=== PATIENT | female | born 1990 | race Caucasian/White ===

== ENCOUNTER 2025-08-18 08:18 | Inpatient (IN) | payer OTHER ==
[2025-08-18] MEDS: ELECTROLYTE-148 SOLN 1,000 ML IV SCH (09:00)
[2025-08-18 09:12] VITALS: BMI 23.3
[2025-08-18] MEDS ORDERED: NIFEdipine E.R. 30 MG TABLET PO ONE (09:18)
[2025-08-18] MEDS ORDERED: OXYTOCIN 30 UNITS in 0.9% NS 30 UNIT/500 ML INFUS.BAG IVPB ONE (09:18)
[2025-08-18 09:19] LABS: ABSOLUTE IMMATURE GRANULOCYTES 0.09 x10^3/uL (0.0-0.031); BASOPHILS # 0.02 x10^3/uL (0.01-0.08); EOSINOPHIL % 0.4 % (0.7-5.8); EOSINOPHILS # 0.04 x10^3/uL (0.04-0.36); MCHC 31.4 g/dl (32.2-35.5); MEAN CELL VOLUME 82.8 fl (79.4-94.8); MEAN PLT VOLUME 10.6 fl (9.4-12.3); MONOCYTE # 0.54 x10^3/uL (0.24-0.86); MONOCYTE % 5.0 % (4.7-12.5); RDW 13.6 % (12.1-16.8)
[2025-08-18] MEDS ORDERED: LIDOCAINE HCL 1% PRESERVATIVE FREE - 30ML VIAL ONE (09:19)
[2025-08-18] MEDS ORDERED: OXYTOCIN 20 UNITS in 0.9% NS 20 UNIT/1,000 ML INFUS.BAG IV ONE (09:19)
[2025-08-18] MEDS: NIFEdipine E.R. 30 MG TABLET PO ONE (09:20)
[2025-08-18] MEDS: NIFEdipine 10 MG CAPSULE (FP) PO ONE (09:20)
[2025-08-18 09:30] LABS: INR 0.96 (0.83-1.09); PROTHROMBIN TIME (PATIENT) 10.5 SEC (9.7-13.0)
[2025-08-18 09:31] LABS: GLUCOSE,RANDOM 99.0 mg/dL (74-106)
[2025-08-18 09:32] LABS: TOT PROT 5.7 g/dl (6.4-8.2)
[2025-08-18 09:33] LABS: ACTIVATED PTT 29.5 SECONDS (25.2-36.5); CO2 22.0 mmol/L (21-32)
[2025-08-18 09:34] LABS: ALK PHOS 279.0 U/L (40-150)
[2025-08-18 09:37] LABS: CREATININE 0.92 mg/dL (0.55-1.3); SGOT/AST 25.0 U/L (5-34); SGPT/ALT 7.0 U/L (0-55)
[2025-08-18 09:58] LABS: HIV INTERPRETATION NEGATIVE (NEGATIVE)
[2025-08-18] MEDS: BUTORPHANOL TARTRATE 2 MG/ML VIAL IVPB ONE (10:07)
[2025-08-18] MEDS: PROMETHAZINE HCL 25 MG/1 ML VIAL IVPB ONE (10:07)
[2025-08-18] MEDS: OXYTOCIN 30 UNITS in 0.9% NS 30 UNIT/500 ML INFUS.BAG IVPB SCH (10:30)
[2025-08-18] MEDS: OXYTOCIN 20 UNITS in 0.9% NS 20 UNIT/1,000 ML INFUS.BAG IV SCH (11:24)
[2025-08-18] MEDS ORDERED: ACETAMINOPHEN 325 MG TABLET (FP) PO PRN (11:38)
[2025-08-18] MEDS ORDERED: BENZOCAINE 20% 57 GM BOTTLE TP PRN (11:38)
[2025-08-18] MEDS ORDERED: BISACODYL 10 MG SUPP.RECT RC PRN (11:38)
[2025-08-18] MEDS ORDERED: METHYLERGONOVINE MALEATE 0.2 MG/1 ML AMP IM PRN (11:38)
[2025-08-18] MEDS ORDERED: IBUPROFEN 600 MG TABLET (FP) PO PRN (11:38)
[2025-08-18] MEDS ORDERED: WITCH HAZEL 50% (TUCKS) 40 PAD/JAR PAD TP PRN (11:38)
[2025-08-18] MEDS ORDERED: BENZOCAINE 28 GM HEMORRHOIDAL OINTMENT TP PRN (11:38)
[2025-08-18] MEDS: ACETAMINOPHEN 1000 MG/100 ML BAG IVPB PRN (11:45)
[2025-08-18] MEDS: NIFEdipine E.R. 30 MG TABLET PO SCH (11:55)
[2025-08-18 14:44] VITALS: RESP 18
[2025-08-18] MEDS: LABETALOL HCL 200 MG TABLET (FP) PO SCH (20:00)
[2025-08-19 07:19] LABS: ABSOLUTE IMMATURE GRANULOCYTES 0.15 x10^3/uL (0.0-0.031); BASOPHILS # 0.06 x10^3/uL (0.01-0.08); EOSINOPHIL % 0.3 % (0.7-5.8); EOSINOPHILS # 0.06 x10^3/uL (0.04-0.36); MCHC 32.3 g/dl (32.2-35.5); MEAN CELL VOLUME 82.9 fl (79.4-94.8); MEAN PLT VOLUME 10.7 fl (9.4-12.3); MONOCYTE # 1.24 x10^3/uL (0.24-0.86); MONOCYTE % 6.9 % (4.7-12.5); RDW 13.9 % (12.1-16.8)
[2025-08-19] MEDS: FERROUS SO4 325 MG TABLET (FP) PO SCH (10:00)
[2025-08-19] MEDS: PRENATAL VITAMINS W/ FOLIC ACID TABLET (FP) PO SCH (10:01)
[2025-08-19] MEDS ORDERED: SENNOSIDES/DOCUSATE COMBO (SENNA PLUS) TABLET (UD) PO PRN (22:00)
[2025-08-20 10:46] VITALS: BP 126/74; PULSE 90; TEMP 97.9
== END 2025-08-20 14:00 | disposition home or self-care (01) | DRG 560 ==
LOC: JLDR 08:18 → J3W 14:05
PROVIDERS: ADMIT Obstetrics & Gynecology; ATTEND Obstetrics & Gynecology
PROC: 10E0XZZ Delivery of Products of Conception, External Approach (ICD-10-PCS; principal; 2025-08-18)
DX: O80 Encounter for full-term uncomplicated delivery (principal); Z3A.39 39 weeks gestation of pregnancy; Z37.0 Single live birth
CPT/HCPCS: 36415; 59409; 80053; 85025; 85610; 85730; 86780; 86850; 86900; 86901; 87389